=== PATIENT | female | born 1945 | race Caucasian/White ===

== ENCOUNTER → 2023-09-23 11:17 | Outpatient (REF) | payer OTHER, SELFPAY | LOC: HWRAD 11:17 | PROVIDERS: ATTENDING PHYSICIAN Nurse Practitioner Adult Health; FAMILY PHYSICIAN Physician Assistant | DX: Z78.0 Asymptomatic menopausal state (principal); Z12.31 Encounter for screening mammogram for malignant neoplasm of breast; N83.209 Unspecified ovarian cyst, unspecified side; R97.1 Elevated cancer antigen 125 [CA 125] | CPT/HCPCS: 76830; 76856; 77063; 77067; 77080 ==

== ENCOUNTER 2024-02-22 11:31 | Emergency (ER) | payer OTHER, SELFPAY ==
[2024-02-22 11:38] VITALS: BP 153/105
[2024-02-22 12:25] VITALS: BMI 29.0
[2024-02-22 12:30] VITALS: BP 148/98
--- NOTE | 2024-02-22 12:49 | EDRN ---
Shin PATE in room w/ pt.
[2024-02-22 12:59] LABS: ALT (SGPT) 16 U/L (0-35); AST (SGOT) 29 U/L (14-36); Albumin 4.2 g/dl (3.5-5.0); Alkaline Phosphatase 57 U/L (38-126); Blood Urea Nitrogen 13 mg/dl (7-17); Carbon Dioxide 26 mmol/L (22-30); Chloride 98 mmol/L (98-107); Estimated Creatinine Clearance 73 ml/min; Glucose 152 mg/dl (70-99); Potassium 3.5 mmol/L (3.5-5.1); Sodium 137 mmol/L (135-145); Total Bilirubin 0.9 mg/dl (0.2-1.3); Total Protein 6.7 g/dl (6.3-8.2); eGFR > 60.00
[2024-02-22 13:00] VITALS: BP 150/82
[2024-02-22] MEDS: NSS 1000 IV (13:12)
[2024-02-22 13:57] LABS: % Basophils 0.4 % (0-2); % Eosinophils 0.7 % (0-6); % Immature Granulocytes 0.4 % (0-0.5); % Lymphocytes 16.7 % (20.5-51.1); % Monocytes 9.7 % (1.7-9.3); % Neutrophils 72.1 % (42.2-75.2); Absolute Eosinophils 0.1 10^3/uL (0-0.7); Absolute Lymphocytes 1.4 10^3/uL (1.2-3.4); Absolute Monocytes 0.8 10^3/uL (0.1-0.6); Absolute Neutrophils 6.2 10^3/uL (1.4-6.5); Hematocrit 34.9 % (37.0-47.0); Hemoglobin 12.5 g/dL (12.0-16.0); Mean Corp Hgb Conc. 35.8 g/dL (33.0-37.0); Mean Corpuscular Hgb 30.1 pg (27.0-31.0); Mean Corpuscular Volume 84.1 fL (81.0-99.0); Mean Platelet Volume 9.8 fL (7.4-10.4); Nucleated Red Blood Cells % 0 %; Platelet Count 214 10^3/uL (130-400); Red Blood Cell Count 4.15 10^6/uL (4.20-5.40); White Blood Cell Count 8.5 10^3/uL (4.8-10.8)
[2024-02-22 14:00] VITALS: BP 166/79
--- NOTE | 2024-02-22 14:09 | ED.GENMED ---
History of Present Illness
General
Chief Complaint: Urinary Symptoms
Source: patient
Exam Limitations: none
Time Seen by Provider: 02/22/24 13:00
Nursing documentation reviewed up to this point in time: agreed with
History of Present Illness
History of Present Illness:
78 yo female with h/o chronic interstitial cystitis is here for 6 days of intermittent mid to right lower abdominal pain. Vomited twice 5 days ago, and once 2 days ago, none since. States vomiting usually relieves her pain but not this time.
States she frequently gets the mid abdominal pain due to her chronic interstitial cystitis but the right side pain is new. She is followed by Dr. [facility] for her cystitis and takes Amitriptyline 30 mg which she upped to 40 mg today as she
may increase it to 50 mg daily as needed. Last visit there was 2 weeks ago.
Now feels nauseous, denies burning, frequency, urgency to urinate. She had a normal BM yesterday.
Is concerned about appendicitis or ovarian cyst (which she knows she has)
Past History
Past History
ED Past Medical History: HTN, Hypercholesterolemia and Other (Chronic interstitial cystitis)
ED Past Surgical History: Orthopedic
Social History
Tobacco: Non-smoker
Alcohol: None
Drug: None
Review of Systems
Review of Systems
Allergies reviewed?: Yes
All Other Systems: ROS reviewed and negative except as documented in HPI and ROS
Constitutional: Denies fever
Respiratory: Denies trouble breathing
Cardiac: Denies chest pain
ABD/GI: Reports abdominal pain and nausea; Denies vomiting, diarrhea, constipated, bloody stools, black stools or anorexia
: Denies dysuria, frequency, difficulty voiding or urgency
Musculoskeletal: Reports no symptoms
Skin: Reports no symptoms
Neurological: Reports no symptoms
Phy Exam
Physical Exam
Physical Exam:
GENERAL: No acute distress. A&Ox3.
CONSTITUTIONAL: Afebrile.
EYES: Clear, conjunctivae normal
ENMT: moist mucus membranes, Pharynx nl
RESPIRATORY: Regular respirations, nonlabored, lungs clear.
CARDIOVASCULAR: Regular rate and rhythm, no murmurs, no rubs.
GI: Soft, nontender at this time, normal BS
MUSCULOSKELETAL: Moves with ease. Well perfused. No edema
SKIN: Warm, dry, pink
PSYCH: Normal mood and affect. Well kept, interactive and appropriate
NEUROLOGIC: Awake, alert and oriented. No focal neurological deficits
Course
Orders/Labs/Results
Orders:
Orders
02/22/24 12:34
IV Insert/Care/Rem.- Treatment PRN
02/22/24 12:36
Comprehensive Metabolic Panel Urgent
02/22/24 13:03
0.9% Sodium Chloride 1000 ml [Nss] 1,000 ml IV BOLUS
02/22/24 13:05
CT Abd/Pel (IV only)-DH only Urgent
Comment:
Reason For Exam: pain across lower abdomen, worse on right
02/22/24 13:51
Complete Blood Count/With Diff Urgent
Comment: PREVIOUS CLOTTED
02/22/24 13:56
Urinalysis Reflex To Culture Urgent
Date Specimen was Collected: 02/22/24
Time Specimen was Collected: 13:54
Urine Microscopic Reflex Cult Urgent
Abnormal Lab Results
02/22/24 02/22/24 02/22/24
12:36 13:51 13:56
RBC 4.15 L 10^6/uL
(4.20-5.40)
Hct 34.9 L %
(37.0-47.0)
Absolute Monos (auto) 0.8 H 10^3/uL
(0.1-0.6)
Lymphocytes % 16.7 L %
(20.5-51.1)
Monocytes % 9.7 H %
(1.7-9.3)
Glucose 152 H mg/dl
(70-99)
Urine Ketones 1+ A
(Negative)
Leukocyte Esterase Rfl Trace A
(Negative)
Urine Bacteria (Reflex) Few A
(Negative)
02/22/24 13:51
02/22/24 12:36
Vital Signs
Initial and Last Documented VS:
Initial Vital Signs
Temp Pulse Resp BP Pulse Ox
99.3 F 116 16 153/105 98
02/22/24 11:38 02/22/24 11:38 02/22/24 11:38 02/22/24 11:38 02/22/24 11:38
Last Documented Vital Signs
Temp Pulse Resp BP Pulse Ox
99.3 F 85 16 180/85 93
02/22/24 11:38 02/22/24 16:00 02/22/24 16:00 02/22/24 16:00 02/22/24 16:00
MDM/Problems Addressed
Differential Diagnosis Includes:
interstitial cystitis, appendicitis, diverticulitis
MDM/Problems Addressed:
78 yo female with h/o chronic interstitial cystitis is here for 6 days of intermittent mid to right lower abdominal pain. Vomited twice 5 days ago, and once 2 days ago, none since. States vomiting usually relieves her pain but not this time.
States she frequently gets the mid abdominal pain due to her chronic interstitial cystitis but the right side pain is new. She is followed by Dr. [facility] for her cystitis and takes Amitriptyline 30 mg which she upped to 40 mg today as she
may increase it to 50 mg daily as needed. Last visit there was 2 weeks ago.
Now feels nauseous, denies burning, frequency, urgency to urinate. She had a normal BM yesterday.
Is concerned about appendicitis or ovarian cyst (which she knows she has)
Abdomen benign
Afebrile, NAD
3:00 p.m.
CBC:normal
CMP:Normal
U/A unremarkable
4:10 PM:
CAT scan abdomen pelvis with IV only contrast: Radiology report read: IMPRESSION: Small bowel enteritis with bowel wall thickening and dilatation. Cholelithiasis
Copy of report reviewed with and given to pt
4:30 p.m.
most likely viral gastroenteritis, usually self limited
Discussed antibiotic vs watchful waiting. Pt agrees to hold off on antibiotics for now. If her pain persists beyond 3 days or symptoms worsen, given prescription for Augmentin to take 2 times a day for 7 days that she will fill.
Return symptoms reviewed
She will keep appointments with her PCP doctor and Urologist later this month
Upon discharge, pt ambulated out with normal gait.
*Critical Care Note
Total Time (30-74mins, 75-104mins- exclusive of procedures): Not Applicable
ED Attending Note
-
Portions of this chart may have been created with voice recognition software.� Occasional wrong word or��sound alike� substitutions may have occurred due to the inherent limitations of voice recognition software.
Discharge Plan
Departure
Patient Disposition: Home (Routine Discharge)
Date of Disposition: 02/22/24
Time of Disposition: 16:12
Patient with high blood pressure during this ER visit?: Yes
Condition: Good
Discharge Problem:
Enteritis
Instructions: Viral gastroenteritis in adults
Prescriptions:
New
amoxicillin-pot clavulanate 875-125 mg tablet
1 tab PO BID Qty: 14 0RF
No Action
calcium carbonate [calcium] 500 MG tablet
500 mg PO BID
cetirizine 10 MG tablet
10 mg PO PRN PRN (Reason: allergies)
simvastatin 20 MG tablet
20 mg PO HS
Clobetasol Emollient 0.05% Crm
1 applic topical HS
Latanoprost 0.005% Eye Drop
1 drp BOTH EYES DAILY@1999
mupirocin 1 APPLIC ointment
1 applic intranasal BID Qty: 1 0RF
Patient Comments:
Last applied 12/07/18 at 0530. Pt has been using twice a day as directed.
tramadol 50 MG tablet
50 mg PO Q6HPRN PRN (Reason: moderate-severe pain) Qty: 35 0RF
Rx Instructions:
dx FERMIN
ongoing therapy
magnesium hydroxide 30 ML suspension
30 ml PO DAILYPRN PRN (Reason: constipation) 0RF
aspirin 325 MG tablet,delayed release (DR/EC)
325 mg PO DAILY 0RF
lisinopril 10 MG tablet
10 mg PO DAILY 0RF
Rx Instructions:
hold systolic bloodpressure <130
docusate sodium 100 MG capsule
100 mg PO BID PRN (Reason: constipation) 0RF
calcium polycarbophil [Fiber-Tabs] 625 MG tablet
625 mg PO BID Qty: 1 0RF
ibuprofen [Advil Liqui-Gel] 200 MG capsule
400 mg PO BID Qty: 0 0RF
Rx Instructions:
*take with food
*do not take within 2hours of asa
acetaminophen [Tylenol Extra Strength] 500 MG tablet
1,000 mg PO QID Qty: 0 0RF
Rx Instructions:
* do not exceed 4000mg/24 hours
famotidine 20 MG tablet
20 mg PO HS Qty: 30 0RF
Referrals:
Lis Hebert PA [Family Provider] -
Activity Restrictions/Additional Instructions:
As we discussed, you most likely have viral gastroenteritis, this usually resolves by itself.
Occasionally it can be bacterial and needs to be treated with antibiotics.
I gave you a prescription for Augmentin to take 2 times a day for 7 days.
Start the antibiotic if no improvement in 3 days, or if pain worsens, you develop fever, and make appointment to see your doctor for follow up in 7-10 days.
Keep you appointments with your GI doctor and Urologist later this month
Interventions
Interventions:
*Risk Screen - Suicide Last Done: 02/22/24 12:26
*General Assessment Last Done: 02/22/24 12:27
*Neglect/Abuse Screening Last Done: 02/22/24 12:26
ED- Fall Risk Assessment Last Done: 02/22/24 12:27
*ED COVID-19 Vaccine History Last Done: 02/22/24 12:26
*Nursing Disposition Last Done: 02/22/24 16:49
ED-Female Genitourinary Assessment Last Done: 02/22/24 12:42
Discharge Date and Time
Discharge Date/Time: 02/22/24 16:49
Print Language: GERMAN
[2024-02-22 14:23] LABS: Urine Albumin Trace (Neg - Trace); Urine Bilirubin Negative (Negative); Urine Character Clear (Clear); Urine Color Yellow; Urine Glucose Negative (Negative); Urine Ketone 1+ (Negative); Urine Leukocyte Trace (Negative); Urine Nitrite Negative (Negative); Urine Occult Blood Negative (Negative); Urine Urobilinogen Negative (Neg - 1+)
[2024-02-22 15:23] LABS: Urine Bacteria Few (Negative); Urine Red Blood Cell 0-2 /HPF (0-2); Urine Squamous Cell 0-2 /LPF (Few)
[2024-02-22 15:30] VITALS: BP 165/71
--- NOTE | 2024-02-22 15:55 | EDRN ---
After I. Serena Day RIO said it was okay pt was given a cup of water at this time.
[2024-02-22 16:00] VITALS: BP 180/85
--- NOTE | 2024-02-22 16:48 | EDRN ---
Shin PATE discharged pt at this time.
== END 2024-02-22 16:49 | disposition home or self-care (01) ==
LOC: EMR 11:31
PROVIDERS: Registered Nurse; EMERGENCY PHYSICIAN Emergency Medicine; FAMILY PHYSICIAN Physician Assistant
DX: K52.9 Noninfective gastroenteritis and colitis, unspecified (principal); E78.00 Pure hypercholesterolemia, unspecified; I10 Essential (primary) hypertension
CPT/HCPCS: 99284; 74177; 80053; 81003; 81015; 85025; Q9967

== ENCOUNTER → 2024-04-08 13:37 | Outpatient (REF) | payer OTHER, SELFPAY | LOC: HWRAD 13:37 | PROVIDERS: ATTENDING PHYSICIAN Nurse Practitioner Adult Health; FAMILY PHYSICIAN Physician Assistant | DX: N83.209 Unspecified ovarian cyst, unspecified side (principal) | CPT/HCPCS: 76830; 76856 ==

== ENCOUNTER → 2024-05-04 10:06 | Outpatient (REF) | payer OTHER, SELFPAY | LOC: MRI 3T 10:06 | PROVIDERS: ATTENDING PHYSICIAN Specialist; FAMILY PHYSICIAN Physician Assistant | DX: K52.9 Noninfective gastroenteritis and colitis, unspecified (principal) | CPT/HCPCS: 72197; 74183; A9585 ==

== ENCOUNTER → 2024-05-25 06:20 | Day surgery (SDC) | payer OTHER, SELFPAY | LOC: GI 06:20 | PROVIDERS: ATTENDING PHYSICIAN Specialist; FAMILY PHYSICIAN Physician Assistant | DX: R93.3 Abnormal findings on diagnostic imaging of other parts of digestive tract (principal); K57.30 Diverticulosis of large intestine without perforation or abscess without bleeding; K56.699 Other intestinal obstruction unspecified as to partial versus complete obstruction; K63.89 Other specified diseases of intestine; R10.9 Unspecified abdominal pain | CPT/HCPCS: 45380; 88305 ==

== ENCOUNTER → 2024-07-08 13:33 | Outpatient (REF) | payer OTHER, SELFPAY ==
[2024-07-08 14:49] LABS: Potassium 4.2 mmol/L (3.5-5.1)
== END ==
LOC: REG 13:33
PROVIDERS: ATTENDING PHYSICIAN Physician Assistant; REFERRING PHYSICIAN Surgery
DX: E87.6 Hypokalemia (principal)
CPT/HCPCS: 36415; 84132

== ENCOUNTER 2024-07-15 10:35 | Inpatient (IN) | payer OTHER, SELFPAY ==
[2024-07-06 10:46] LABS: Hematocrit 37.7 % (37.0-47.0); Hemoglobin 12.4 g/dL (12.0-16.0); Mean Corp Hgb Conc. 32.9 g/dL (33.0-37.0); Mean Corpuscular Hgb 29.6 pg (27.0-31.0); Mean Platelet Volume 10.5 fL (7.4-10.4); Platelet Count 203 10^3/uL (130-400); Red Blood Cell Count 4.19 10^6/uL (4.20-5.40); Red Cell Dist. Width 14.2 % (11.5-14.5); White Blood Cell Count 5.1 10^3/uL (4.8-10.8)
[2024-07-06 11:00] LABS: INR 1.01; PT 13.6 Sec (11.4-14.6)
[2024-07-06 11:02] LABS: APTT 28.6 Sec (23.4-35.0)
[2024-07-06 11:32] LABS: Glycohemoglobin (HgbA1c) 6.1 % (4.0-5.6)
[2024-07-06 12:07] LABS: ALT (SGPT) 18 U/L (0-35); AST (SGOT) 28 U/L (14-36); Albumin 4.4 g/dl (3.5-5.0); Alkaline Phosphatase 60 U/L (38-126); Blood Urea Nitrogen 9 mg/dl (7-17); Calcium 9.2 mg/dl (8.4-10.2); Carbon Dioxide 30 mmol/L (22-30); Chloride 98 mmol/L (98-107); Glucose 109 mg/dl (70-99); Potassium 3.3 mmol/L (3.5-5.1); Sodium 140 mmol/L (135-145); Total Bilirubin 0.8 mg/dl (0.2-1.3); Total Protein 7.2 g/dl (6.3-8.2); eGFR > 60.00
[2024-07-06 13:38] VITALS: BMI 28.3
[2024-07-15] VITALS (13 sets, daily range): BP systolic 96–165; BP diastolic 54–92; BMI 28.3
[2024-07-15] MEDS: TYLENOL 1000 MG PO (10:54)
[2024-07-15] MEDS: HEPARIN 5000 UNITS SC (10:54)
[2024-07-15] MEDS: NEURONTIN 600 MG PO (10:54)
[2024-07-15] MEDS: ENTEREG 12 MG PO (10:54)
[2024-07-15] MEDS: NORMOSOL-R/PLASMALYTE-A 1000 IV ×2 (10:56→18:00)
--- NOTE | 2024-07-15 17:42 | W.IMMPOSTOP ---
Addendum entered and electronically signed by Lang Scherer MD 07/15/24 18:06:
Updated patient's daughter, Dulce, in waiting area.
Addendum entered and electronically signed by Lang Scherer MD 07/15/24 17:52:
Consulting hospitalist for medical management.
Original Note:
Surgical Immed Post Op Note
-
Primary Surgeon: Aubrie Scherer MD
Assisting Surgeon: FEI De La Rosa
Pre-op Diagnosis: ileal stricture
Post-op Diagnosis: same
Procedure Performed: ileocecectomy with partial small bowel resection (robotic converted to open)
Anesthesia Type: general plus local
Specimen / Cultures: ileocecectomy with en-bloc portion of small bowel (50 cm distal ileum and about 8 cm of upstream small bowel)
Estimated Blood Loss: 350 cc
Complications: no immediate
Operative Findings: 1) diseased distal ileum with associated dense chronic adhesions mild proximal small bowel distension and a loop of adherent upstream small bowel 2) right ureter intact (confirmed by Dr. Duarte of urology) 3) lap pad count off
at end of case leading to intrap Xray showing lap in abdomen--ultimately removed before closure
Webster in bladder.
NGT placed--confirmed in stomach intraoperatively. Will send to med surg.
Will send to med surg.
[2024-07-15 18:34] LABS: Glucose - Point of Care 242 mg/dl (70-99)
[2024-07-15] MEDS: TORADOL 10 MG IV ×2 (18:44→23:39)
[2024-07-15] MEDS: OFIRMEV 100 IV ×2 (18:45→23:39)
[2024-07-15 18:57] LABS: % Basophils 0.3 % (0-2); % Immature Granulocytes 0.4 % (0-0.5); % Lymphocytes 6.3 % (20.5-51.1); Absolute Lymphocytes 0.4 10^3/uL (1.2-3.4); Absolute Monocytes 0.3 10^3/uL (0.1-0.6); Absolute Neutrophils 5.9 10^3/uL (1.4-6.5); Hematocrit 34.9 % (37.0-47.0); Hemoglobin 11.5 g/dL (12.0-16.0); Mean Corpuscular Hgb 30.1 pg (27.0-31.0); Mean Corpuscular Volume 91.4 fL (81.0-99.0); Mean Platelet Volume 9.7 fL (7.4-10.4); Nucleated Red Blood Cells % 0 %; Platelet Count 179 10^3/uL (130-400); Red Blood Cell Count 3.82 10^6/uL (4.20-5.40); Red Cell Dist. Width 14.4 % (11.5-14.5); White Blood Cell Count 6.7 10^3/uL (4.8-10.8)
[2024-07-15 18:58] LABS: Blood Urea Nitrogen 12 mg/dl (7-17); Calcium 6.9 mg/dl (8.4-10.2); Carbon Dioxide 23 mmol/L (22-30); Estimated Creatinine Clearance 72 ml/min; Glucose 253 mg/dl (70-99); Magnesium 2.2 mg/dl (1.6-2.3); eGFR > 60.00
[2024-07-15 19:03] LABS: Chloride 100 mmol/L (98-107); Potassium 3.6 mmol/L (3.5-5.1); Sodium 133 mmol/L (135-145)
[2024-07-15] MEDS: NOVOLOG vial 2 UNITS SC (19:05)
--- NOTE | 2024-07-15 20:30 | PTCARENOTE ---
20:05 pt rec'vd from PACU, NGT left nare to low inter suction, left abd 3glued lap sites, midline and distal transverse drsg scant pinpoint drainage noted with indwelling hagen in place, report/assessment reviewed with Kristie COLORER MACHINE. pt denies pain ,
vs wnl for pt, pt oriented to unit daughter at the bedside..
[2024-07-15 21:28] LABS: Glucose - Point of Care 235 mg/dl (70-99)
--- NOTE | 2024-07-15 22:36 | CON.HOSP ---
Addendum entered and electronically signed by Renu Syed MD 07/15/24 22:40:
Patient has NG tube.
Original Note:
Family Physician
-
Family Physician: Lis Hebert
Chief Complaint
-
consult for medical management
History of Present Illness
78-year-old female past medical history of ileal stenosis, osteoarthritis, obesity, hypertension, hyperlipidemia, borderline diabetes, glucoma, lichen sclerosis, degenerative disc disease, spondylolisthesis, L4, L5, lumbar radiculopathy who
underwent ileocecectomy partial small bowel resection today.
Medical History
Past Medical History
Past Medical History: Reports Other (ileal stenosis, osteoarthritis, obesity, hypertension, hyperlipidemia, borderline diabetes, glucoma, lichen sclerosis, degenerative disc disease, spondylolisthesis, L4, L5, lumbar radiculopathy)
Past Surgical History: Reports Other (ileocecectomy with partial small bowel resection)
Social History
Tobacco: Non-smoker
Alcohol: None
Drug: None
Allergies / Home Medications
Allergies reflects when Allergies were last updated in [employer].
Home Medications with original date entered in [employer]
Allergy/Medication List:
Allergies
Allergy/AdvReac Type Severity Reaction Status Date / Time
pollen extracts Allergy Nasal Verified 07/15/24 10:37
congestion
watery eyes
Sulfa (Sulfonamide Allergy Rash Verified 07/15/24 10:37
Antibiotics)
sulfamethoxazole Allergy Rash Verified 07/15/24 19:59
[From Bactrim]
trimethoprim [From Bactrim] Allergy Rash Verified 07/15/24 19:59
Home Medications
cetirizine 10 mg tablet 10 mg PO PRN PRN allergies 11/11/18
simvastatin 20 mg tablet 20 mg PO HS 11/11/18
amitriptyline 10 mg tablet 30 mg PO HS 07/08/24
calcium 600 mg (as carbonate)-vitamin D3 5 mcg (200 unit) tablet 1 tab PO DAILY 07/08/24
cholecalciferol (vitamin D3) 25 mcg (1,000 unit) tablet (Vitamin D3) 25 mcg PO DAILY 07/08/24
docusate sodium 100 mg capsule 100 mg PO HSPRN PRN constipation 07/08/24
ibuprofen 200 mg tablet (Advil) 200 - 400 mg PO Q6H PRN pain 07/08/24
lisinopril 20 mg tablet 20 mg PO DAILY 07/08/24
metronidazole 500 mg tablet 500 mg PO PRE PROCEDURE 07/08/24
glgmavnubxaq-kafwuxgv-pxscjm tablet 1 tab PO DAILY 07/08/24
neomycin 500 mg tablet 1 g PO PRE PROCEDURE 07/08/24
omega 2-lve-uby-fish oil 1,000 mg (120 mg-180 mg) capsule (Fish Oil) 1 cap PO DAILY 07/08/24
sodium sul 1.479 gram-potas ch 0.188 gram-magnes sul 0.225 gram tablet (Sutab) 0 tab PO PER PKG DIR 07/08/24
Review of Systems
-
History Source: Patient
A 12 point Review of Systems was completed except as noted: Yes
Constitutional: Reports No Symptoms
EENT: Reports No Symptoms
Respiratory: Reports No Symptoms
Cardiac: Reports No Symptoms
Abdomen/GI: Reports No Symptoms
: Reports No Symptoms
Musculoskeletal: Reports No Symptoms
Skin: Reports No Symptoms
Neurological: Reports No Symptoms
Endocrine: Reports No Symptoms
Hematologic/Lymphatic: Reports No Symptoms
Psych: Reports No Symptoms
Physical Exam
Vital Signs
Vital Signs
Temp Pulse Resp BP Pulse Ox
97.6 F 94 16 97/60 95
07/15/24 21:10 07/15/24 21:10 07/15/24 21:10 07/15/24 21:10 07/15/24 21:34
Physical Exam
General: Well Developed, Well Nourished and No Apparent Distress
HEENT: Normocephalic, Moist Mucous Membranes and Atraumatic
Respiratory: Clear
Cardiac: S1/S2 and Regular Rhythm; Negative Murmur or Rub
GI: Soft, Non Tender, Non Distended and Normal Bowel Sounds
Rectal: Deferred by Provider
Musculoskeletal: No Clubbing, No Cyanosis and No Edema
Skin: Negative Rash
Neuro: Nonfocal/Grossly Intact
Laboratory Results
-
Laboratory Results
07/15/24 18:33
07/15/24 18:33
PT 13.6 Sec (11.4-14.6) 07/06/24 09:03
INR 1.01 07/06/24 09:03
APTT 28.6 Sec (23.4-35.0) 07/06/24 09:03
Total Bilirubin 0.8 mg/dl (0.2-1.3) 07/06/24 09:03
AST 28 U/L (14-36) 07/06/24 09:03
ALT 18 U/L (0-35) 07/06/24 09:03
Alkaline Phosphatase 60 U/L (38-126) 07/06/24 09:03
Data Reviewed
-
Lab Data: Labs Reviewed
Old Records: Reviewed
Impression / Plan
-
IMPRESSION:
PLAN:
# Ileal stricture
-Status post ileocecectomy with partial small bowel resection
-N.p.o. including medication
# Hypocalcemia secondary to surgery
-Replete calcium
Osteoarthritis
Obesity
Essential hypertension
-Hold lisinopril,
Hyperlipidemia
-Hold statin
Borderline diabetes
-Insulin sliding scale
Glaucoma
Lichen sclerosus
Degenerative disc disease
-Hold amitriptyline
Spondylolisthesis L4-L5
Lumbar radiculopathy
[2024-07-15] MEDS: CALCIUM GLUCONATE 100 IV (22:59)
[2024-07-16 02:58] VITALS: BP 109/60
[2024-07-16] MEDS: OFIRMEV 100 IV ×2 (05:10→12:25)
[2024-07-16] MEDS: TORADOL 10 MG IV ×3 (05:10→17:51)
[2024-07-16 05:31] VITALS: BMI 27.7
[2024-07-16 06:22] LABS: % Immature Granulocytes 0.1 % (0-0.5); % Lymphocytes 8.5 % (20.5-51.1); % Monocytes 7.2 % (1.7-9.3); % Neutrophils 84.2 % (42.2-75.2); Absolute Lymphocytes 0.6 10^3/uL (1.2-3.4); Absolute Monocytes 0.5 10^3/uL (0.1-0.6); Absolute Neutrophils 5.9 10^3/uL (1.4-6.5); Hemoglobin 11.5 g/dL (12.0-16.0); Mean Corp Hgb Conc. 33.8 g/dL (33.0-37.0); Mean Corpuscular Hgb 29.8 pg (27.0-31.0); Mean Corpuscular Volume 88.1 fL (81.0-99.0); Mean Platelet Volume 10.2 fL (7.4-10.4); Nucleated Red Blood Cells % 0 %; Platelet Count 196 10^3/uL (130-400); Red Blood Cell Count 3.86 10^6/uL (4.20-5.40); Red Cell Dist. Width 14.6 % (11.5-14.5); White Blood Cell Count 7.1 10^3/uL (4.8-10.8)
[2024-07-16 06:47] LABS: Blood Urea Nitrogen 16 mg/dl (7-17); Calcium 8.1 mg/dl (8.4-10.2); Carbon Dioxide 27 mmol/L (22-30); Chloride 98 mmol/L (98-107); Estimated Creatinine Clearance 62 ml/min; Glucose 160 mg/dl (70-99); Magnesium 2.4 mg/dl (1.6-2.3); Potassium 4.2 mmol/L (3.5-5.1); Sodium 135 mmol/L (135-145); eGFR > 60.00
[2024-07-16 07:05] VITALS: BP 121/60
[2024-07-16] MEDS: NSS (PRESERVATIVE FREE) 10 ML IV (08:41)
[2024-07-16] MEDS: ENTEREG PO ×2 (08:41→19:42)
[2024-07-16] MEDS: PROTONIX IV 40 MG IV (08:42)
[2024-07-16] MEDS: NORMOSOL-R/PLASMALYTE-A 1000 IV ×2 (08:49→22:02)
--- NOTE | 2024-07-16 10:23 | W.PN.CRS1 ---
Today's Communication / Plan
-
keep ngt
oob
lovenox
Assessment/Plan
-
POD#1 ileocecectomy with partial small bowel resection (robotic converted to open)
-Labs and vitals normal
-Continue NG tube until bowel function
-Continue Webster catheter until tomorrow
-Start Lovenox for DVT prophylaxis. Teds and SCDs in place.
-Appreciate hospitalist
-OR pathology pending
-Pain control: Tylenol, Toradol standing, Dilaudid as needed
-Out of bed as tolerated
-Continue IV fluids while n.p.o.
Subjective Data
Procedure
07/15/2024- ileocecectomy with partial small bowel resection (robotic converted to open)
Subjective Data
Date of Service: July 16, 2024
Patient states she has no pain. She denies nausea or vomiting. She currently has no complaints.
Objective Data
-
Vital Signs
Temp Pulse Resp BP Pulse Ox
97.4 F 86 16 121/60 96
07/16/24 07:05 07/16/24 07:05 07/16/24 07:05 07/16/24 07:05 07/16/24 07:05
Intake & Output
07/15/24 07/16/24 07/17/24
06:59 06:59 06:59
Intake Total 410 / 410
Output Total 920 / 920
Balance -510 / -510
Intake:
IV fluids (Total) 200 / 200
Normosol 200 / 200
Amount instilled into GI Tube ( 210 / 210
Total)
Jejunostomy 0 / 0
[place] Sump 210 / 210
Output:
Gastrointestinal tube output ( 395 / 395
Total)
Jejunostomy 0 / 0
[place] Sump 395 / 395
Urine, Webster 525 / 525
Lab Results
07/16/24 05:15
07/16/24 05:15
Physical Exam
-
General: No Acute Distress and AOx3
Abdomen: Soft, Non Distended and Non Tender
Skin: Warm and Dry
Incision: Clear, Dry, Intact
--- NOTE | 2024-07-16 10:54 | CM ---
Reviewed the chart notes and spoke with the patient at the bedside. Patient is POD#1 ileocecectomy with partial small bowel resection (robotic converted to open). The patient resides alone in a two story home with one step to enter. The patient's
bedroom and complete bath are located on the first level. The patient has in the home if needed a cane, rolling walker, and raised toilet seat. The patient is currently on supplemental O2 and has NGT to lws. [facility] and Lis MALONE is PCP. CM continues to be available to patient/family and is monitoring medical plan for needs at discharge.
Plan: Discharge plans will depend on the patient's progress.
[2024-07-16 12:29] LABS: Glucose - Point of Care 125 mg/dl (70-99)
--- NOTE | 2024-07-16 15:11 | W.PN.HOSP.TC ---
Today's Communication/Plan
-
Maintain NGT
Diet per colorectal
Analgesia
Trend CBC and BMP
Assessment / Plan
Assessment / Plan
#Ileal stricture s/p ileocecectomy with partial small bowel resection
-POD #1, no fevers or other signs of complication
-S/p NGT, planning to keep in place until normalization of bowel
-OR pathology from stricture obtained, results pending
-Post OR Webster catheter in place, plan to remove on 07/17/2024
-Trend CBC and BMP
-Monitor bowel status
-Tylenol/Toradol/Dilaudid PRN
-Supportive IVF
#Hypocalcemia
-Calcium was 6.9 on initial labs, 8.1 as of this morning
-Order vitamin D level and albumin with BMP for tomorrow
-Replete vitamin D if needed
#Primary hypertension
-Home medications include lisinopril 20 mg daily
-Held upon admission due to n.p.o. status and procedure
-Blood pressure currently stable, will resume lisinopril if hypertensive
#Hyperlipidemia
-No known history of ASCVD
-Home medications include simvastatin, which was held for OR
-Resume statin when no longer n.p.o.
#Prediabetes
-Started on ISS with Accu-Cheks here
#Lichen sclerosus
-Stable
#Degenerative disc disease
#Spondylolisthesis L4/L5
#Lumbar radiculopathy
-On chronic OTC analgesics and amitriptyline
-Amitriptyline held, will resume when not n.p.o.
DVT prophylaxis: Lovenox
Diet: N.p.o. pending normalization of bowel status
CODE STATUS: Full code
Anticipated Discharge: > 48 hours
Subjective/Interval History
-
Date of Service: July 16, 2024
Seen and examined at bedside. No acute events reported overnight. AFVSS this morning
POD #1 from ileocecectomy and partial small bowel resection. Remains with NGT in place. Denies any significant pain or symptoms
States she generally feels well considering her procedure yesterday. Pain currently controlled
Objective Data
-
Labs:
Laboratory Results
07/16/24
05:15
WBC 7.1
Hgb 11.5 L
Hct 34.0 L
Plt Count 196
Sodium 135
Potassium 4.2
Chloride 98
Carbon Dioxide 27
BUN 16
Creatinine 0.8
Glucose 160 H
Calcium 8.1 L
Vital Signs:
Vital Signs
Temp Pulse Resp BP Pulse Ox
97.4 F 86 16 121/60 96
07/16/24 07:05 07/16/24 07:05 07/16/24 07:05 07/16/24 07:05 07/16/24 07:05
I&O
07/15/24 07/16/24 07/17/24
06:59 06:59 06:59
Intake Total 410 / 410
Output Total 920 / 920
Balance -510 / -510
Review of Systems
-
History Source: Patient
All other systems: Reviewed and negative
Physical Exam
-
General: Well Developed, Well Nourished, No Apparent Distress and Comfortable
HEENT: Normocephalic, Atraumatic, Moist Mucous Membranes, Anicteric and Other (NGT)
Respiratory: Clear to Auscultation and Non Labored Respirations
Cardiac: Regular Rhythm and S1/S2; Negative Murmur, Rub or Gallop
GI: Soft, Nontender, Nondistended and Other (Hypoactive bowel sounds)
Musculoskeletal: No Clubbing, No Cyanosis and No Edema
Skin: Warm, Dry and Normal Turgor; Negative Rash
Neuro: AO x 3 and Nonfocal/Grossly Intact
Psych: Calm
Data Reviewed
-
Labs: Labs Reviewed by me and Discussed with Patient
[2024-07-16 15:56] VITALS: BP 117/73; PULSE 88
[2024-07-16 15:57] VITALS: BP 132/62
[2024-07-16 16:06] VITALS: BP 117/73; PULSE 88; O2SAT 96
[2024-07-16] MEDS: LOVENOX 40 MG SC (17:51)
[2024-07-16 18:27] LABS: Glucose - Point of Care 120 mg/dl (70-99)
[2024-07-16 23:20] VITALS: BP 123/59
[2024-07-16 23:48] LABS: Glucose - Point of Care 113 mg/dl (70-99)
[2024-07-17] MEDS: TORADOL 10 MG IV ×2 (00:04→05:57)
[2024-07-17 05:39] VITALS: BMI 27.8
[2024-07-17 06:30] LABS: Glucose - Point of Care 113 mg/dl (70-99)
[2024-07-17 07:40] VITALS: BP 130/69
[2024-07-17 08:18] LABS: % Basophils 0.5 % (0-2); % Eosinophils 0.1 % (0-6); % Immature Granulocytes 0.4 % (0-0.5); % Monocytes 6.5 % (1.7-9.3); % Neutrophils 76.5 % (42.2-75.2); Absolute Lymphocytes 1.2 10^3/uL (1.2-3.4); Absolute Monocytes 0.5 10^3/uL (0.1-0.6); Absolute Neutrophils 5.9 10^3/uL (1.4-6.5); Hematocrit 28.8 % (37.0-47.0); Hemoglobin 9.4 g/dL (12.0-16.0); Mean Corp Hgb Conc. 32.6 g/dL (33.0-37.0); Mean Corpuscular Hgb 29.8 pg (27.0-31.0); Mean Corpuscular Volume 91.4 fL (81.0-99.0); Mean Platelet Volume 10.5 fL (7.4-10.4); Nucleated Red Blood Cells % 0 %; Platelet Count 169 10^3/uL (130-400); Red Blood Cell Count 3.15 10^6/uL (4.20-5.40); Red Cell Dist. Width 15.1 % (11.5-14.5); White Blood Cell Count 7.8 10^3/uL (4.8-10.8)
[2024-07-17 08:30] LABS: Albumin 2.9 g/dl (3.5-5.0); Blood Urea Nitrogen 25 mg/dl (7-17); Calcium 7.6 mg/dl (8.4-10.2); Carbon Dioxide 28 mmol/L (22-30); Chloride 102 mmol/L (98-107); Estimated Creatinine Clearance 55 ml/min; Glucose 114 mg/dl (70-99); Potassium 3.8 mmol/L (3.5-5.1); Sodium 137 mmol/L (135-145); eGFR > 60.00
[2024-07-17] MEDS: PROTONIX IV 40 MG IV (08:37)
[2024-07-17] MEDS: NSS (PRESERVATIVE FREE) 10 ML IV (08:37)
[2024-07-17 08:49] LABS: Vitamin D, 25-OH*** 25.7 ng/mL (30-80)
[2024-07-17] MEDS: ENTEREG 12 MG PO (09:30)
--- NOTE | 2024-07-17 09:59 | W.PN.GS2 ---
Addendum entered and electronically signed by Zenon Subramanian MD 07/17/24 15:11:
I saw and examined the patient.
The Cv/Cvn Cv Tsc System Operator's note was reviewed and I agree with the note.
Comment: Passing gas and BMx2 with some blood, HD stable, Hb 11.5 --> 9.4 likely combination of intra-op blood loss/equilibration/hemodilution, will monitor and hold toradol and chemical DVT ppx for now, SCDs on and functioning. DC NGT and trial cld
Original Note:
Today's Communication / Plan
-
D/C NGT, trial on clears
Assessment / Plan
-
78 yo female with ileal stricture now POD #2 robotic converted to open ileocectomy with proximal SBR given chronic adhesions with ureteral stent placement for identification of ureters
AFVSS
Stent/hagen now out, voiding
Passed BM x2 with bloody stool noted this am, passing flatus
NGT with slowing outputs, nonbilious
Acute blood loss anemia secondary to intraop losses and likely some bleeding at the fresh anastamosis site, component of hemodilution present
--D/C NGT and trial on clears
--C/W IVF
--Trend labs
--Hold lovenox and Toradol
--Tylenol, tramadol and dilaudid for pain
--SCD's while in bed, OOB as tolerated
--C/W PPI
--Appreciate hospitalist following for medical management
Subjective Data
-
Date of Service: July 17, 2024
Patient seen and examined at bedside. Denies n/v. Passed 2 bm's overnight, the second was with quite a bit of bloody material. Passing quite a bit of flatus. Voided a small amount with BM this am. Tearful and notes her NGT is making her eyes water
and her throat sore.
Objective Data
-
Intake and Output
07/16/24 07/17/24 07/18/24
06:59 06:59 06:59
Intake Total 410 / 410 1380 / 1380
Output Total 920 / 920 1625 / 1625
Balance -510 / -510 -245 / -245
Intake:
Oral fluids 240 / 240
IV fluids (Total) 200 / 200 960 / 960
Normosol 200 / 200
Amount instilled into GI Tube ( 210 / 210 180 / 180
Total)
Jejunostomy 0 / 0
[place] Sump 210 / 210 180 / 180
Output:
Gastrointestinal tube output ( 395 / 395 650 / 650
Total)
Jejunostomy 0 / 0
[place] Sump 395 / 395 650 / 650
Urine, Hagen 525 / 525 975 / 975
Vital Signs
Temp Pulse Resp BP Pulse Ox
98.4 F 86 18 130/69 94
07/17/24 07:40 07/17/24 07:40 07/17/24 07:40 07/17/24 07:40 07/17/24 07:40
Lab Results
07/17/24 06:51
07/17/24 06:51
Calcium 7.6 mg/dl (8.4-10.2) L 07/17/24 06:51
Magnesium 2.4 mg/dl (1.6-2.3) H 07/16/24 05:15
Total Bilirubin 0.8 mg/dl (0.2-1.3) 07/06/24 09:03
AST 28 U/L (14-36) 07/06/24 09:03
ALT 18 U/L (0-35) 07/06/24 09:03
Alkaline Phosphatase 60 U/L (38-126) 07/06/24 09:03
Total Protein 7.2 g/dl (6.3-8.2) 07/06/24 09:03
Albumin 2.9 g/dl (3.5-5.0) L 07/17/24 06:51
Physical Exam
-
NAD, tearful
ABD soft, nt, nd
NGT with gastric outputs, watery from ice chips
Incisions with intact glue and no erythema
Patient has a hagen catheter: No
Patient has a central line: No
[2024-07-17 10:47] LABS: Glucose - Point of Care 113 mg/dl (70-99)
--- NOTE | 2024-07-17 11:21 | W.PN.HOSP.TC ---
Addendum entered and electronically signed by Leland Barton DO 07/17/24 13:43:
#Acute blood loss anemia
-Likely bleeding from anastomotic site, had some dark stool today
-Colorectal surgery aware, patient remains on PPI therapy
-Trend CBC and temperature curve
-Supportive transfusion for hemoglobin <7 or symptoms
Original Note:
Today's Communication/Plan
-
Clear liquids, advance per colorectal team
Monitor abdomen exams and stool output
When tolerating diet plan to resume JOSE inhibitor/TCA/statin
Plan for vitamin D replacement when tolerating diet
Assessment / Plan
Assessment / Plan
#Ileal stricture s/p ileocecectomy with partial small bowel resection
-POD #1, no fevers or other signs of complication
-S/p NGT, planning to keep in place until normalization of bowel
-OR pathology from stricture obtained, results pending
-NGT and Webster catheter removed today
-Started on clear liquid diet, monitor bowel status and abdomen exam
-Plan to resume home ACEi, amitriptyline, statin when okay with rectal surgery
-Trend CBC and BMP
-Tylenol/Toradol/Dilaudid PRN
-Supportive IVF
#Hypocalcemia
#Vitamin D deficiency
-Calcium was 6.9 on initial labs, 8.1 as of this morning
-Order vitamin D level and albumin with BMP for tomorrow
-Plan for 50 mcg colecalciferol daily when tolerating diet from colorectal perspective
#Primary hypertension
-Home medications include lisinopril 20 mg daily
-Held upon admission due to n.p.o. status and procedure
-Blood pressure currently stable, will resume lisinopril if hypertensive
#Hyperlipidemia
-No known history of ASCVD
-Home medications include simvastatin, which was held for OR
-Resume statin when no longer n.p.o.
#Prediabetes
-Started on ISS with Accu-Cheks here
#Lichen sclerosus
-Stable
#Degenerative disc disease
#Spondylolisthesis L4/L5
#Lumbar radiculopathy
-On chronic OTC analgesics and amitriptyline
-Amitriptyline held, will resume when not n.p.o.
DVT prophylaxis: Lovenox
Diet: Clear liquid diet
CODE STATUS: Full code
Anticipated Discharge: > 48 hours
Subjective/Interval History
-
Date of Service: July 17, 2024
Seen and examined at bedside. No acute events reported overnight. AFVSS this morning
Labs this morning with hemoglobin drop from 11.5-9.4, some blood noted with stool output, presumed anastomotic bleeding.
NG tube was removed and trialed on clear liquid diet
She was very emotional due to to feeling overwhelmed at all of the events of this hospitalization. She stated that she knows she is improving. Denied any acute medical complaint
Objective Data
-
Labs:
Laboratory Results
07/17/24
06:51
WBC 7.8
Hgb 9.4 L
Hct 28.8 L
Plt Count 169
Sodium 137
Potassium 3.8
Chloride 102
Carbon Dioxide 28
BUN 25 H
Creatinine 0.9
Glucose 114 H
Calcium 7.6 L
Vital Signs:
Vital Signs
Temp Pulse Resp BP Pulse Ox
98.4 F 86 18 130/69 94
07/17/24 07:40 07/17/24 07:40 07/17/24 07:40 07/17/24 07:40 07/17/24 07:40
I&O
07/16/24 07/17/24 07/18/24
06:59 06:59 06:59
Intake Total 410 / 410 1380 / 1380
Output Total 920 / 920 1625 / 1625
Balance -510 / -510 -245 / -245
Review of Systems
-
History Source: Patient
All other systems: Reviewed and negative
Physical Exam
-
General: Well Developed, Well Nourished, No Apparent Distress and Comfortable
HEENT: Normocephalic, Atraumatic, Moist Mucous Membranes and Anicteric
Respiratory: Clear to Auscultation and Non Labored Respirations
Cardiac: Regular Rhythm and S1/S2; Negative Murmur, Rub or Gallop
GI: Soft, Nondistended, Normal Bowel Sounds and Tender (Very mild, periumbilical, no peritoneal sign)
Musculoskeletal: No Clubbing, No Cyanosis and No Edema
Skin: Warm, Dry, Normal Turgor and Other (Abdomen incision without erythema or purulence); Negative Rash
Neuro: AO x 3 and Nonfocal/Grossly Intact
Psych: Calm
[2024-07-17] MEDS: NORMOSOL-R/PLASMALYTE-A 1000 IV (14:13)
[2024-07-17 15:23] VITALS: BP 123/60
[2024-07-17 16:17] LABS: Glucose - Point of Care 107 mg/dl (70-99)
[2024-07-17] MEDS: ENTEREG PO (20:00)
[2024-07-17 21:45] LABS: Glucose - Point of Care 137 mg/dl (70-99)
[2024-07-17 23:33] VITALS: BP 131/61
[2024-07-18 06:00] VITALS: BMI 27.8
[2024-07-18 06:22] LABS: Hematocrit 27.4 % (37.0-47.0); Hemoglobin 8.9 g/dL (12.0-16.0); Mean Corp Hgb Conc. 32.5 g/dL (33.0-37.0); Mean Corpuscular Hgb 29.3 pg (27.0-31.0); Mean Corpuscular Volume 90.1 fL (81.0-99.0); Platelet Count 166 10^3/uL (130-400); Red Blood Cell Count 3.04 10^6/uL (4.20-5.40); Red Cell Dist. Width 14.6 % (11.5-14.5); White Blood Cell Count 6.4 10^3/uL (4.8-10.8)
[2024-07-18 06:44] LABS: Blood Urea Nitrogen 16 mg/dl (7-17); Calcium 7.8 mg/dl (8.4-10.2); Carbon Dioxide 27 mmol/L (22-30); Chloride 103 mmol/L (98-107); Estimated Creatinine Clearance 83 ml/min; Glucose 118 mg/dl (70-99); Potassium 3.8 mmol/L (3.5-5.1); Sodium 137 mmol/L (135-145); eGFR > 60.00
[2024-07-18 07:30] VITALS: BP 142/84
[2024-07-18 08:12] LABS: Glucose - Point of Care 124 mg/dl (70-99)
[2024-07-18] MEDS: ENTEREG 12 MG PO ×2 (08:27→19:53)
[2024-07-18] MEDS: NSS (PRESERVATIVE FREE) 10 ML IV (08:27)
[2024-07-18] MEDS: PROTONIX IV 40 MG IV (08:27)
[2024-07-18] MEDS: OCEAN, SALINE MIST 2 SPRAYS NASAL ×2 (09:48→16:53)
[2024-07-18] MEDS: NORMOSOL-R/PLASMALYTE-A IV (10:03)
--- NOTE | 2024-07-18 11:39 | W.PN.HOSP.TC ---
Today's Communication/Plan
-
Advance diet per colorectal team
Resume amitriptyline, lisinopril, statin when tolerating full diet
Start 50 mcg of vitamin D supplement, tolerating full diet
Trend CBC
IV PPI
Assessment / Plan
Assessment / Plan
#Ileal stricture s/p ileocecectomy with partial small bowel resection
-POD #3, no fevers or other signs of complication; s/p NGT and Webster
-S/p NGT, planning to keep in place until normalization of bowel
-OR pathology from stricture obtained, results pending
-Tolerating clear liquids and has been escalated to full liquid diet
-Plan to resume home ACEi, amitriptyline, statin when okay with rectal surgery
-Trend CBC and BMP
-Tylenol/Toradol/Dilaudid PRN
-Supportive IVF
-Advance diet per colorectal team
#Acute blood loss anemia
-Likely bleeding from anastomotic site, had some dark stool today
-Colorectal surgery aware, patient remains on PPI therapy
-Trend CBC, has since had fairly stable hemoglobin after initial drop
-Supportive transfusion for hemoglobin <7 or symptoms
#Hypocalcemia
#Vitamin D deficiency
-Calcium was 6.9 on initial labs, 8.1 as of this morning
-Order vitamin D level and albumin with BMP for tomorrow
-Plan for 50 mcg colecalciferol daily when tolerating diet from colorectal perspective
#Primary hypertension
-Home medications include lisinopril 20 mg daily
-Held upon admission due to n.p.o. status and procedure
-Blood pressure currently stable, will resume lisinopril if hypertensive
#Hyperlipidemia
-No known history of ASCVD
-Home medications include simvastatin, which was held for OR
-Resume statin when no longer n.p.o.
#Prediabetes
-Started on ISS with Accu-Cheks here
#Lichen sclerosus
-Stable
#Degenerative disc disease
#Spondylolisthesis L4/L5
#Lumbar radiculopathy
-On chronic OTC analgesics and amitriptyline
-Amitriptyline held, will resume when not n.p.o.
DVT prophylaxis: Lovenox
Diet: Full liquid diet
CODE STATUS: Full code
Anticipated Discharge: > 48 hours
Subjective/Interval History
-
Date of Service: July 18, 2024
Seen and examined at the bedside. NGT removed this morning. Patient seated in chair. No acute events. AFVSS
Continues to have stool output. Hemoglobin stabilized after drop of overnight into 07/17. Denies any noticeable bleeding today
She denies any acute complaints. Continues to be tearful at times though she states 'this is just how I am'
Objective Data
-
Labs:
Laboratory Results
07/18/24
06:03
WBC 6.4
Hgb 8.9 L
Hct 27.4 L
Plt Count 166
Sodium 137
Potassium 3.8
Chloride 103
Carbon Dioxide 27
BUN 16
Creatinine 0.6
Glucose 118 H
Calcium 7.8 L
Vital Signs:
Vital Signs
Temp Pulse Resp BP Pulse Ox
98.1 F 101 16 142/84 95
07/18/24 07:30 07/18/24 07:30 07/18/24 07:30 07/18/24 07:30 07/18/24 07:30
I&O
07/17/24 07/18/24 07/19/24
06:59 06:59 06:59
Intake Total 1380 / 1380 1979
Output Total 1625 / 1625
Balance -245 / -245 1976
Review of Systems
-
History Source: Patient
All other systems: Reviewed and negative
Physical Exam
-
General: Well Developed, Well Nourished, No Apparent Distress and Comfortable
HEENT: Normocephalic, Atraumatic, Moist Mucous Membranes and Anicteric
Respiratory: Clear to Auscultation and Non Labored Respirations
Cardiac: Regular Rhythm and S1/S2; Negative Murmur, Rub or Gallop
GI: Soft, Nontender, Nondistended, Normal Bowel Sounds and Other
Musculoskeletal: No Clubbing, No Cyanosis and No Edema
Skin: Warm, Dry and Other (Abdomen surgical scar without purulence or surrounding erythema); Negative Rash
Neuro: AO x 3 and Nonfocal/Grossly Intact
Psych: Calm
Data Reviewed
-
Labs: Labs Reviewed by me and Discussed with Patient
[2024-07-18 12:36] LABS: Glucose - Point of Care 136 mg/dl (70-99)
--- NOTE | 2024-07-18 13:19 | W.PN.GS2 ---
Addendum entered and electronically signed by Zenon Subramanian MD 07/18/24 14:35:
Correction: disregard addendum below, entered in error, incorrect pt
Ms morton is improving with less arevalo today than yesterday, ambulating, passing stool without blood and flatus. latesha cld. exam approp ttp incisions cdi. adv to fld
Addendum entered and electronically signed by Zenon Subramanian MD 07/18/24 13:59:
I saw and examined the patient.
The Laboratory Worker's note was reviewed and I agree with the note.
Comment: feels lightheaded when ambulating, so not doing much. Pain controlled, mostly around llq incision. Hb slow drift down. adv to lrd
Original Note:
Today's Communication / Plan
-
FLD
Assessment / Plan
-
78 yo female with ileal stricture now POD #3 robotic converted to open ileocecectomy with proximal SBR given chronic adhesions with ureteral stent placement for identification of ureters
AFVSS
Bloody stools initially, now resolved
H/H still drifting downward as she equilibrates, lovenox on hold for now
--Advance to FLD
--stop IVF
--Trend labs
--Hold lovenox and Toradol
--Tylenol, tramadol and Dilaudid for pain
--SCD's while in bed, OOB as tolerated
--C/W PPI
--Appreciate hospitalist following for medical management
Subjective Data
-
Date of Service: July 18, 2024
Patient seen and examined at bedside with Dr. Subramanian. Passing flatus and some loose stools, no further bloody stools per nursing notes. Denies n/v. Tolerating clears thus far. Pain improving day by day.
Objective Data
-
Intake and Output
07/17/24 07/18/24 07/19/24
06:59 06:59 06:59
Intake Total 1380 / 1380 1979
Output Total 1625 / 1625
Balance -245 / -245 1976
Intake:
Oral fluids 240 / 240 720 / 720
IV fluids (Total) 960 / 960 1260 / 1260
Amount instilled into GI Tube ( 180 / 180
Total)
[place] Sump 180 / 180
Output:
Liquid stool amount
Rectum
Gastrointestinal tube output ( 650 / 650
Total)
[place] Sump 650 / 650
Urine, [place] 975 / 975
Other:
Number of approximated MODERATE 2
amounts of urine
Vital Signs
Temp Pulse Resp BP Pulse Ox
98.1 F 101 16 142/84 95
07/18/24 07:30 07/18/24 07:30 07/18/24 07:30 07/18/24 07:30 07/18/24 07:30
Lab Results
07/18/24 06:03
07/18/24 06:03
Calcium 7.8 mg/dl (8.4-10.2) L 07/18/24 06:03
Magnesium 2.4 mg/dl (1.6-2.3) H 07/16/24 05:15
Total Bilirubin 0.8 mg/dl (0.2-1.3) 07/06/24 09:03
AST 28 U/L (14-36) 07/06/24 09:03
ALT 18 U/L (0-35) 07/06/24 09:03
Alkaline Phosphatase 60 U/L (38-126) 07/06/24 09:03
Total Protein 7.2 g/dl (6.3-8.2) 07/06/24 09:03
Albumin 2.9 g/dl (3.5-5.0) L 07/17/24 06:51
Physical Exam
-
NAD, tearful
ABD soft, nt, nd
Incisions with intact glue and no erythema
Patient has a hagen catheter: No
Patient has a central line: No
[2024-07-18 15:20] VITALS: BP 135/80
[2024-07-18 17:16] LABS: Glucose - Point of Care 90 mg/dl (70-99)
[2024-07-18 23:07] LABS: Glucose - Point of Care 135 mg/dl (70-99)
[2024-07-18 23:31] VITALS: BP 132/66
[2024-07-19 06:00] VITALS: BMI 27.4
[2024-07-19 06:48] LABS: % Basophils 0.4 % (0-2); % Eosinophils 5.3 % (0-6); % Immature Granulocytes 0.5 % (0-0.5); % Lymphocytes 27.7 % (20.5-51.1); % Monocytes 8.6 % (1.7-9.3); % Neutrophils 57.5 % (42.2-75.2); Absolute Eosinophils 0.3 10^3/uL (0-0.7); Absolute Lymphocytes 1.5 10^3/uL (1.2-3.4); Absolute Monocytes 0.5 10^3/uL (0.1-0.6); Absolute Neutrophils 3.1 10^3/uL (1.4-6.5); Hematocrit 24.9 % (37.0-47.0); Hemoglobin 8.3 g/dL (12.0-16.0); Mean Corp Hgb Conc. 33.3 g/dL (33.0-37.0); Mean Corpuscular Hgb 30.1 pg (27.0-31.0); Mean Corpuscular Volume 90.2 fL (81.0-99.0); Mean Platelet Volume 10.3 fL (7.4-10.4); Nucleated Red Blood Cells % 0.4 %; Platelet Count 174 10^3/uL (130-400); Red Blood Cell Count 2.76 10^6/uL (4.20-5.40); Red Cell Dist. Width 14.3 % (11.5-14.5); White Blood Cell Count 5.5 10^3/uL (4.8-10.8)
[2024-07-19 07:03] LABS: Blood Urea Nitrogen 10 mg/dl (7-17); Calcium 8.2 mg/dl (8.4-10.2); Carbon Dioxide 28 mmol/L (22-30); Chloride 101 mmol/L (98-107); Estimated Creatinine Clearance 74 ml/min; Glucose 122 mg/dl (70-99); Potassium 3.4 mmol/L (3.5-5.1); Sodium 134 mmol/L (135-145); eGFR > 60.00
[2024-07-19 07:15] VITALS: BP 148/76
[2024-07-19] MEDS: NSS (PRESERVATIVE FREE) 10 ML IV (08:40)
[2024-07-19] MEDS: PROTONIX IV 40 MG IV (08:40)
[2024-07-19] MEDS: ENTEREG 12 MG PO (08:40)
[2024-07-19 08:47] LABS: Glucose - Point of Care 133 mg/dl (70-99)
--- NOTE | 2024-07-19 09:32 | W.PN.CRS1 ---
Today's Communication / Plan
-
low residue diet
Assessment/Plan
-
78 yo female with ileal stricture now POD #4 robotic converted to open ileocecectomy with proximal SBR given chronic adhesions with ureteral stent placement for identification of ureters
AFVSS
Bloody stools initially, now resolved
H/H still drifting downward, lovenox on hold for now
--Advance to low residue diet
--Hold lovenox and Toradol
--Tylenol, tramadol and Dilaudid for pain
--SCD's while in bed, OOB as tolerated
--C/W PPI
--Appreciate hospitalist following for medical management
--Possible d/c later today if tolerates a low residue diet
Subjective Data
Procedure
07/15/2024- ileocecectomy with partial small bowel resection (robotic converted to open)
Subjective Data
Date of Service: July 19, 2024
Patient states she feels well. She has no nausea or vomiting. She denies use of pain medications. She is having gas and loose stools.
Objective Data
-
Vital Signs
Temp Pulse Resp BP Pulse Ox
98.1 F 85 18 148/76 93
07/19/24 07:15 07/19/24 07:15 07/19/24 07:15 07/19/24 07:15 07/19/24 07:15
Intake & Output
07/18/24 07/19/24 07/20/24
06:59 06:59 06:59
Intake Total 1979
Output Total /
Balance 1976
Intake:
Oral fluids 720 / 720 2339
IV fluids (Total) 1260 / 1260
Output:
Liquid stool amount 3 / 3
Rectum 3 / 3
Other:
Number of approximated MODERATE 2 4
amounts of urine
Number of approximated LARGE 3
amounts of urine
Lab Results
07/19/24 05:18
07/19/24 05:18
Physical Exam
-
General: No Acute Distress and AOx3
Abdomen: Soft, Non Distended and Non Tender
Skin: Warm and Dry
Incision: Clear, Dry, Intact
[2024-07-19 11:11] LABS: Glucose - Point of Care 127 mg/dl (70-99)
--- NOTE | 2024-07-19 12:48 | W.PN.HOSP.TC ---
Today's Communication/Plan
-
Diet has been advanced to low residue.
Okay to resume antihypertensive regiment and statin.
Okay to resume amitriptyline. Patient takes amitriptyline presumably for chronic pain including urologic symptoms from interstitial cystitis. Advised to continue amitriptyline and follow-up with urology as outpatient with consideration of
adjusting possibly weaning.
Assessment / Plan
Assessment / Plan
#Ileal stricture s/p ileocecectomy with partial small bowel resection
-POD #3, no fevers or other signs of complication; s/p NGT and Webster
-S/p NGT, planning to keep in place until normalization of bowel
-OR pathology from stricture obtained, results pending
-Tolerating clear liquids and has been escalated to full liquid diet
-Plan to resume home ACEi, amitriptyline, statin when okay with rectal surgery
-Trend CBC and BMP
-Tylenol/Toradol/Dilaudid PRN
-Supportive IVF
-Advance diet per colorectal team
#Acute blood loss anemia
-Likely bleeding from anastomotic site, had some dark stool today
-Colorectal surgery aware, patient remains on PPI therapy
-Trend CBC, has since had fairly stable hemoglobin after initial drop
-Supportive transfusion for hemoglobin <7 or symptoms
#Hypocalcemia
#Vitamin D deficiency
-Calcium was 6.9 on initial labs, 8.1 as of this morning
-Order vitamin D level and albumin with BMP for tomorrow
-Plan for 50 mcg colecalciferol daily when tolerating diet from colorectal perspective
#Primary hypertension
-Home medications include lisinopril 20 mg daily
-Held upon admission due to n.p.o. status and procedure
-Blood pressure currently stable, will resume lisinopril if hypertensive
#Hyperlipidemia
-No known history of ASCVD
-Home medications include simvastatin, which was held for OR
-Resume statin when no longer n.p.o.
#Prediabetes
-Started on ISS with Accu-Cheks here
#Lichen sclerosus
-Stable
#Degenerative disc disease
#Spondylolisthesis L4/L5
#Lumbar radiculopathy
-On chronic OTC analgesics and amitriptyline
-Amitriptyline held, will resume when not n.p.o.
DVT prophylaxis: Lovenox
Diet: Full liquid diet
CODE STATUS: Full code
Anticipated Discharge: Within 24 hours
Subjective/Interval History
-
Date of Service: July 19, 2024
Objective Data
-
Labs:
Laboratory Results
07/19/24
05:18
WBC 5.5
Hgb 8.3 L
Hct 24.9 L
Plt Count 174
Sodium 134 L
Potassium 3.4 L
Chloride 101
Carbon Dioxide 28
BUN 10
Creatinine 0.6
Glucose 122 H
Calcium 8.2 L
Vital Signs:
Vital Signs
Temp Pulse Resp BP Pulse Ox
98.1 F 85 18 148/76 93
07/19/24 07:15 07/19/24 07:15 07/19/24 07:15 07/19/24 07:15 07/19/24 08:00
I&O
07/18/24 07/19/24 07/20/24
06:59 06:59 06:59
Intake Total 1979 2340 / 2340 720 / 720
Output Total / 3
Balance 1976 234 / 2340 720 / 720
Physical Exam
-
General: Well Developed, Well Nourished, No Apparent Distress and Comfortable
HEENT: Normocephalic, Atraumatic, Moist Mucous Membranes and Anicteric
Respiratory: Clear to Auscultation and Non Labored Respirations
Cardiac: Regular Rhythm and S1/S2; Negative Murmur, Rub or Gallop
GI: Soft, Nontender, Nondistended, Normal Bowel Sounds and Other
Musculoskeletal: No Clubbing, No Cyanosis and No Edema
Skin: Warm, Dry and Other (Abdomen surgical scar without purulence or surrounding erythema); Negative Rash
Neuro: AO x 3 and Nonfocal/Grossly Intact
Psych: Calm
[2024-07-19] MEDS: ZESTRIL 20 MG PO (13:14)
[2024-07-19 14:32] VITALS: BP 136/85; PULSE 103; O2SAT 96
[2024-07-19 15:01] VITALS: BP 131/73
--- NOTE | 2024-07-19 15:27 | CM ---
Chart reviewed and plan is to home today no needs daughter to transport.
Plan; Home patient has declined the need for visiting nurses.
[2024-07-19 16:38] LABS: Glucose - Point of Care 142 mg/dl (70-99)
== END 2024-07-19 17:20 | disposition home or self-care (01) | DRG 330 ==
LOC: 2 SOUTH 10:35
PROVIDERS: Internal Medicine; Registered Nurse; ADMITTING PHYSICIAN Surgery; FAMILY PHYSICIAN Physician Assistant; OTHER PHYSICIAN Hospitalist
PROC: 0DJD4ZZ Inspection of Lower Intestinal Tract, Percutaneous Endoscopic Approach (ICD-10-PCS; 2024-07-15)
PROC: 0DTH0ZZ Resection of Cecum, Open Approach (ICD-10-PCS; 2024-07-15)
PROC: 8E0W8CZ Robotic Assisted Procedure of Trunk Region, Via Natural or Artificial Opening Endoscopic (ICD-10-PCS; 2024-07-15)
PROC: 0DBB0ZZ Excision of Ileum, Open Approach (ICD-10-PCS; 2024-07-15)
DX: K56.51 Intestinal adhesions [bands], with partial obstruction (principal); D62 Acute posthemorrhagic anemia; I10 Essential (primary) hypertension; H40.20X0 Unspecified primary angle-closure glaucoma, stage unspecified; M43.16 Spondylolisthesis, lumbar region; M51.16 Intervertebral disc disorders with radiculopathy, lumbar region; E78.2 Mixed hyperlipidemia; R73.03 Prediabetes; E66.9 Obesity, unspecified; E83.51 Hypocalcemia; G89.29 Other chronic pain; L90.0 Lichen sclerosus et atrophicus; Z96.641 Presence of right artificial hip joint; Z96.653 Presence of artificial knee joint, bilateral; Z88.1 Allergy status to other antibiotic agents; Z88.2 Allergy status to sulfonamides; Z79.899 Other long term (current) drug therapy; Z53.31 Laparoscopic surgical procedure converted to open procedure; Z68.28 Body mass index [BMI] 28.0-28.9, adult
CPT/HCPCS: 88307; 36415; 76000; 80048; 80053; 82040; 82306; 82962; 83036; 83735; 85025; 85027; 85610; 85730; 86850; 86900; 86901; 93005; 97116; 97163; 97167; C1776; J1335

== ENCOUNTER → 2024-10-26 15:13 | Outpatient (REF) | payer OTHER, SELFPAY | LOC: HWWDC 15:13 | PROVIDERS: ATTENDING PHYSICIAN Physician Assistant | DX: Z12.31 Encounter for screening mammogram for malignant neoplasm of breast (principal) | CPT/HCPCS: 77063; 77067 ==

== ENCOUNTER 2025-01-11 06:16 | Day surgery (SDC) | payer OTHER, SELFPAY | END 2025-01-11 12:46 | disposition home or self-care (01) | LOC: GI 06:16 | PROVIDERS: ATTENDING PHYSICIAN Specialist | DX: Z09 Encounter for follow-up examination after completed treatment for conditions other than malignant neoplasm (principal); K56.699 Other intestinal obstruction unspecified as to partial versus complete obstruction; K57.30 Diverticulosis of large intestine without perforation or abscess without bleeding; K52.9 Noninfective gastroenteritis and colitis, unspecified; D12.5 Benign neoplasm of sigmoid colon; K63.89 Other specified diseases of intestine; Z98.0 Intestinal bypass and anastomosis status | CPT/HCPCS: 45380; 88305 ==

== ENCOUNTER → 2025-04-05 13:12 | Outpatient (REF) | payer OTHER, SELFPAY | LOC: HWRAD 13:12 | PROVIDERS: ATTENDING PHYSICIAN Nurse Practitioner Adult Health; FAMILY PHYSICIAN Physician Assistant | DX: N83.209 Unspecified ovarian cyst, unspecified side (principal) | CPT/HCPCS: 76830; 76856 ==